=== PATIENT | male | born 1945 | race African-American/Black ===

== ENCOUNTER 2018-10-07 15:52 | Emergency (ER) | payer MEDICARE, MEDICAID ==
[~2018-10-07 15:52] MED LIST: Iopamidol 370 76% 100 ML VIAL ONE
[2018-10-07 16:41] LABS: INR-International Normal Ratio 1.1; PTT 29.3 SEC (22.9-36.1); Prothrombin Time 14.4 SEC (12.0-14.7)
[2018-10-07 16:44] LABS: #Eosinphils 0.2 thou/uL (0.0-0.7); #Lymphocytes 1.6 thou/uL (1.20-3.40); #Monocytes 0.5 thou/uL (0.11-0.59); #Neutrophils 3.9 thou/uL (1.40-6.50); %Basophils 0.8 % (0.0-1.0); %Eosinophils 2.7 % (0.0-10.0); %Lymphocytes 25.1 % (21.0-51.0); %Monocytes 7.6 % (0.0-10.0); %Neutrophils 63.9 % (42.0-75.0); Hemoglobin 14.3 g/dL (14.0-18.0); Mean Corpuscular HGB CONC 31.6 g/dL (32.0-36.0); Mean Corpuscular Hemoglobin 27.3 pg (27.0-31.0); Mean Corpuscular Volume 86.4 fL (78.0-98.0); Mean Platelet Volume 7.2 fL (7.4-10.4); Platelet Count 217 thou/uL (130-400); RBC Distribution Width 12.8 % (11.5-14.5); Red Blood Cell (RBC) Count 5.23 mill/uL (4.70-6.10); White Blood Cell (WBC) Count 6.2 thou/uL (4.8-10.8)
[2018-10-07 16:50] LABS: ALT (SGPT) 17 U/L (8-55); AST (SGOT) 12 U/L (5-34); Albumin 4.3 g/dL (3.4-4.8); Alkaline Phosphatase 87 U/L (40-150); Anion Gap 15 mmol/L (10-20); BUN (Urea Nitrogen) 15 mg/dL (8.4-25.7); Bilirubin, Total 0.4 mg/dL (0.2-1.2); Calc. Creatinine Clearance 0 mL/min (70-130); Calcium 9.7 mg/dL (7.8-10.44); Carbon Dioxide 21 mmol/L (23-31); Chloride 107 mmol/L (98-107); Estimated GFR-MDRD 68; Globulin 3.4 g/dL (2.4-3.5); Glucose 110 mg/dL (83-110); Potassium 3.8 mmol/L (3.5-5.1); Protein, Total 7.7 g/dL (5.8-8.1); Sodium 139 mmol/L (136-145)
[2018-10-07 17:12] LABS: Bilirubin Negative (Negative); Blood, Urine Large (Negative); Clarity Slightly Cloudy (Clear); Glucose, Urine (Dipstick) Negative (Negative); Leukocyte Moderate (Negative); Nitrite Negative (Negative); Protein, Urine (Dipstick) 100 mg/dL (Neg-Trace); Urobilinogen 0.2 mg/dL (Less than 2)
[2018-10-07 17:13] LABS: Bacteria/HPF Rare-Few HPF (None Seen); RBC/HPF Greater than 50 HPF (0-3); Squamous Epithelial 0-3 HPF (0-3)
--- NOTE | 2018-10-07 18:19 | CT ---
CT ABDOMEN AND PELVIS WITH IV CONTRAST 10/07/2018 CLINICAL INFORMATION: Hematuria and burning with urination. COMPARISON: 06/27/2014 Technique: Multiple contiguous axial CT images are obtained through the abdomen and pelvis with IV contrast. Cor onal reformatted images are provided. FINDINGS: Lower Chest: Calcified right hilar lymph nodes are seen with calcified granuloma at the right lung ba se. There is bibasilar linear scarring versus atelectasis. Vessels: Vascular calcifications are seen in the abdominal aorta and involving the iliac arteries. Abdomen: Portal vein:Patent Gallbladder: Within normal limits for CT imaging. Liver: within normal limits. Spleen: within normal limits. Pancreas: within normal limits. Adrenals: within normal limits. Kidneys: Hypodense bilateral renal lesions are again seen most compatible with cysts. No enhancing re nal mass is identified, and there is no hydronephrosis. Bowel: Although the gastric wall thickening appears less prominent than on the prior exam, the gastri c wall thickening does persist especially involving the fundus and proximal body of the stomach which could be related to gastritis. The edematous wall of the stomach along the lesser curvature on the prior study is not appreciated on today's exam. Loops of small bowel are normal in caliber. Appendix: The appendix is visualized and normal in caliber. Peritoneum: No ascites or free air; no fluid collection. Mesentery and Retroperitoneum: No enlarged mesenteric or retroperitoneal lymph nodes. Abdominal Wall: within normal limits. Pelvis: Reproductive Organs: Prostate gland is surgically absent. Surgical clips are again seen in the pelvis . Pelvis within normal limits. Bladder: Incompletely distended. There is suggestion of minimal. Vesicle inflammatory stranding. Wall s urinary bladder are mildly prominent, this could be related to incomplete distention, but given question of adjacent straining, cystitis is a possibility. Bones: There is irregularity of the endplates of the L2, L3, and L4 vertebral bodies which is overall stable from the prior study is probably related to prominent endplate degenerative changes with Schmorl's nodes present. There is a lucency with well-defined sclerotic margins seen in the left brodie c bone which has a nonaggressive appearance and is stable from prior study. Bilateral sacroiliac joint osteoarthritis is present. No suspicious lytic or sclerotic osseous lesions are appreciated IMPRESSION: 1. Persistent thickening of the monk of the stomach predominantly involving the region of the fundus of the stomach and along the proximal body of the greater curvature of the stomach. Similar findings were seen on the prior study, but the edematous wall of the stomach along the lesser curvatu re has resolved. Gastric wall thickening on this exam could be related to gastritis. However, endoscopy would be better study of choice for further evaluation. 2. Suggestion of minimal perivesicular inflammatory changes. Monk of the urinary bladder are mildly prominent, and this could be related to incomplete distention. Given the perivesicular inflammatory changes, cystitis is a possibility in the correct clinical scenario. Correlation with urinalysis is r ecommended. 3. Findings favored to represent prominent degenerative changes within the lumbar spine with areas of sclerosis slightly increased from the prior exam which are favored to be due to degenerative changes; however, in a patient with history of prostate cancer, metastatic disease cannot be entirely excluded. If the patient has rising PSA levels, bone scan would be recommended for further evaluation. 4. Bilateral renal cysts. No enhancing renal mass is seen. 5. Evidence of prostatectomy.
[2018-10-07] MEDS ORDERED: Sulfameth/Trimethoprim DS 800-160mg TAB ONE (18:45)
[2018-10-07] MEDS ORDERED: Phenazopyridine HCl 97.5 MG TABLET ONE (18:49)
== END 2018-10-07 19:06 | disposition home or self-care (01) ==
LOC: NAV ERS 15:52
DX: N30.01 Acute cystitis with hematuria (principal); R93.5 Abnormal findings on diagnostic imaging of other abdominal regions, including retroperitoneum; I25.10 Atherosclerotic heart disease of native coronary artery without angina pectoris; E11.9 Type 2 diabetes mellitus without complications; E78.5 Hyperlipidemia, unspecified; E78.00 Pure hypercholesterolemia, unspecified; I10 Essential (primary) hypertension; M19.90 Unspecified osteoarthritis, unspecified site; F17.210 Nicotine dependence, cigarettes, uncomplicated; Z85.46 Personal history of malignant neoplasm of prostate; Z79.82 Long term (current) use of aspirin; Z79.4 Long term (current) use of insulin; Z79.899 Other long term (current) drug therapy
CPT/HCPCS: 51798; 74177; 80053; 81003; 81015; 85025; 85610; 85730; 87077; 87086; 87186; Q9967